=== PATIENT | male | born 1955 ===

== ENCOUNTER 2018-01-23 15:49 | Observation (INO) | payer MEDICAID ==
[2018-01-23 18:05] LABS: BASO # 0.1 K/uL (0.0-0.2); EOS # 0.2 K/uL (0.0-0.7); HEMOGLOBIN 17.7 g/dL (12.0-18.0)
[2018-01-23 18:10] LABS: URINE BACTERIA RARE (<OCC); URINE BILIRUBIN NEGATIVE (NEGATIVE); URINE BLOOD NEGATIVE (NEGATIVE); URINE CLARITY Clear (Clear); URINE GLUCOSE (UA) NORMAL (Normal); URINE LEUKOCYTE ESTERASE NEG Leu/uL (Negative); URINE PROTEIN NEGATIVE (NEGATIVE)
[2018-01-23 18:12] LABS: URINE COLOR YELLOW (YELLOW)
[2018-01-23 18:16] LABS: INR 1.1; PROTHROMBIN TIME 12.2 SECONDS (9.7-12.2)
[2018-01-23 18:20] LABS: ALB/GLOB RATIO 1.3 (1.0-2.1); ALBUMIN 4.3 g/dL (3.5-5.0); ALT/SGPT 49 U/L (21-72); AST/SGOT 23 U/L (17-59); BLOOD UREA NITROGEN 24 mg/dL (9-20); CALCIUM 9.7 mg/dl (8.6-10.4); GFR AFRICAN-AMERICAN > 60; GFR NON-AFRICAN AMERICAN 51; LIPASE 155 U/L (23-300)
[2018-01-23 18:26] LABS: MEAN CELL VOLUME 89.5 fL (80.0-94.0); MEAN CORPUSCULAR HEMOGLOBIN 31.2 pg (27.0-31.0); MEAN CORPUSCULAR HGB CONC 34.8 g/dL (33.0-37.0); MEAN PLATELET VOLUME 8.3 fL (7.2-11.7); RBC 5.69 Mil/uL (4.40-5.90); RED CELL DISTRIBUTION WIDTH 13.4 % (11.5-14.5); WHITE BLOOD COUNT 10.2 K/uL (4.8-10.8)
[2018-01-23 18:31] LABS: B-TYPE NATRIURETIC PEPTIDE 34.3 pg/mL (0-900)
[2018-01-23 18:32] LABS: BARBITURATES, UR NEGATIVE (NEGATIVE); BENZODIAZEPINES, UR NEGATIVE (NEGATIVE); OPIATES, UR NEGATIVE (NEGATIVE); PHENCYCLIDINE, UR NEGATIVE (NEGATIVE)
[2018-01-23 18:39] LABS: LYMPH % 20.8 % (20.0-40.0); MONO % 8.5 % (0.0-10.0); NEUT % 68.1 % (50.0-75.0)
[2018-01-23 18:40] LABS: BASO % 0.6 % (0.0-2.0); LYMPH # 2.1 K/uL (1.0-4.3); MONO # 0.9 K/uL (0.0-0.8); NEUT # 6.9 K/uL (1.8-7.0); NRBC % 0.3 % (0.0-2.0)
[2018-01-23] MEDS ORDERED: Potassium Chloride 20 mEq ER Tab PO STA (19:23)
--- NOTE | 2018-01-23 19:33 | C.PDOC ---
Time Seen by Provider: 01/23/18 17:26 Chief Complaint (Nursing): Chest Pain History Per: Patient Onset/Duration Of Symptoms: Days, Intermittent Episodes Current Symptoms Are (Timing): Still Present Severity: Moderate Quality: "Pain" Associated Symptoms: Nausea, Dyspnea Exacerbating Factors: Exertion Additional History Per: Prior Records Past Medical History Reviewed: Historical Data, Nursing Documentation, Vital Signs Vital Signs: Last Vital Signs Temp 98.0 F 01/23/18 16:28 Pulse 105 H 01/23/18 19:00 Resp 19 01/23/18 19:00 BP 124/87 01/23/18 19:00 Pulse Ox 100 01/23/18 19:35 - Medical History PMH: CAD, HTN Surgical History: Coronary Stent Family History: States: Unknown Family Hx - Social History Hx Tobacco Use: Yes Hx Alcohol Use: No Hx Substance Use: No - Immunization History Hx Tetanus Toxoid Vaccination: No Hx Influenza Vaccination: Yes Hx Pneumococcal Vaccination: Yes Review Of Systems Except As Marked, All Systems Reviewed And Found Negative. Constitutional: Positive for: Weakness, Malaise. Negative for: Fever Cardiovascular: Positive for: Chest Pain Respiratory: Positive for: SOB with Excertion Gastrointestinal: Positive for: Abdominal Pain Musculoskeletal: Negative for: Neck Pain Neurological: Negative for: Weakness, Numbness Physical Exam - Physical Exam Appears: No Acute Distress, Chronically Ill Skin: Normal Color, Warm, Dry Head: Atraumatic, Normacephalic Eye(s): bilateral: PERRL, EOMI Neck: Normal ROM, Supple Cardiovascular: Rhythm Regular Respiratory: Normal Breath Sounds, No Accessory Muscle Use Gastrointestinal/Abdominal: Soft Extremity: Normal ROM, No Pedal Edema Neurological/Psych: Oriented x3, Normal Motor, Normal Sensation ED Course And Treatment - Laboratory Results Result Diagrams: 01/23/18 18:02 01/23/18 18:02 Interpretation Of Abnormal: Mild hypokalemia ECG: Interpreted By Me, Viewed By Me ECG Rhythm: Sinus Rhythm, Nonspecific Changes ECG Interpretation: Abnormal Interpretation Of ECG: Q waves in leads III and aVF Rate From EC O2 Sat by Pulse Oximetry: 100 Pulse Ox Interpretation: Normal - Radiology CXR: Interpreted by Me, Viewed By Me CXR Interpretation: Yes: No Acute Disease Progress - Interventions Interventions:: Observation, Oxygen - Medications Administered Oral: Aspirin, Other (KCl) - Data Reviewed Data Reviewed: Lab, Diagnostic imaging, EKG, Old records - Patient Status Patient status: Partially improved - Continuity of Care Discussed patient case with:: Patient, Family-HIPPA compliant, ED Nurse, Covering for PMD Disposition Discussed With : London Sommer Comment: He accepted pt on hospitalist service. Doctor Will See Patient In The: Hospital Counseled Patient/Family Regarding: Studies Performed, Diagnosis, Smoking Cessation - Disposition Disposition: HOSPITALIZED Disposition Time: 20:03 Condition: FAIR - Clinical Impression Clinical Impression: Chest pain, Coronary artery disease
[2018-01-23] MEDS ORDERED: Potassium Chloride 20 mEq ER Tab PO ONE (20:15)
--- NOTE | 2018-01-23 21:58 | CP.PCM.HP ---
<Joe Hurtado - Last Filed: 01/24/18 06:05> History of Present Illness - History of Present Illness History of Present Illness: CC: Abdominal Pain HPI: In [employer] ( [place], [id number])- Poor historian Patient is a 62 year old male CAD (with stent placement), PVD and HTN, who presents to the ED with complaint of left-sided abdominal pain that radiates upward to this left side/chest and neck with associated symptoms of daily nausea and vomiting . Patient' symptom has been going on for 3- 4 weeks, however , he did not seek medical attention because the pain was not continuos or constant. However, over the past 1 week, his symptoms have been continuous, which he describes as an 8/10 radiating pressure. As per ED nurses, patient was sent to the ED by his PMD due to abnormal findings on a CT abdomen without contrast 2 days ago; patient does not have the results. Patient admits to chills , nausea, vomiting and headache, but denies fever, chest pain, SOB, palpitations , hematochezia, urinary symptoms and recent sick contact or travels. PMD: Dr. Gamble Floorworker: Dr. White PMHx: CAD (with stent placement), PVD and HTN PSHx: Cardiac stent placement and popliteal stent FHx: Unknown Medications: Does not recall; as per emr (Norvasc 10mg PO QD, Plavix 75mg PO QD , ASA 81mg PO QD Allergies: NKDA Social Hx: Lives alone, unemployed. Admits > 50 yrs of tobacco use ( 2PPD initially, currently, 3-4 cigarettes per day), Denies ETOH and illicit drug use Present on Admission - Present on Admission Any Indicators Present on Admission: No Review of Systems - Constitutional Constitutional: Chills, Headache. absent: Fever, Frequent Falls, Weakness - EENT Eyes: absent: Blurred Vision, Change in Vision Ears: absent: Dizziness - Cardiovascular Cardiovascular: Radiating Pain. absent: Chest Pain, Chest Pain at Rest, Dyspnea , Lightheadedness, Palpitations - Respiratory Respiratory: absent: Cough, Dyspnea - Gastrointestinal Gastrointestinal: Abdominal Pain, Nausea, Vomiting. absent: Belching, Bloating , Change in Bowel Habits, Cramping, Hematemesis, Hematochezia, Odynophagia - Genitourinary Genitourinary: absent: Dysuria, Flank Pain, Hematuria, Pyuria - Musculoskeletal Musculoskeletal: absent: Numbness, Tingling - Neurological Neurological: Headaches. absent: Dizziness, Syncope, Tingling, Weakness - Psychiatric Psychiatric: absent: Change in Appetite - Endocrine Endocrine: absent: Fatigue, Palpitations Past Patient History - Past Social History Smoking Status: Light Smoker < 10 Cigarettes Daily - CARDIAC Hx Hypertension: Yes - PSYCHIATRIC Hx Substance Use: No - SURGICAL HISTORY Hx Coronary Stent: Yes Meds Allergies/Adverse Reactions: Allergies Allergy/AdvReac Type Severity Reaction Status Date / Time No Known Allergies Allergy Verified 01/23/18 16:31 Physical Exam - Constitutional Appears: No Acute Distress - Head Exam Head Exam: ATRAUMATIC, NORMAL INSPECTION - Eye Exam Eye Exam: EOMI. absent: Scleral icterus Pupil Exam: NORMAL ACCOMODATION - ENT Exam ENT Exam: Mucous Membranes Moist - Neck Exam Neck exam: Negative for: Lymphadenopathy - Respiratory Exam Respiratory Exam: Clear to Auscultation Bilateral, NORMAL BREATHING PATTERN. absent: Rhonchi, Wheezes, Respiratory Distress - Cardiovascular Exam Cardiovascular Exam: REGULAR RHYTHM, +S1, +S2. absent: Bradycardia, Tachycardia , Diastolic murmur, Systolic Murmur - GI/Abdominal Exam GI & Abdominal Exam: Soft, Tenderness. absent: Diminished Bowel Sounds, Distended, Firm, Guarding Additional comments: Left lower quadrant tenderness - Extremities Exam Extremities exam: Positive for: normal inspection. Negative for: calf tenderness, pedal edema - Back Exam Back exam: absent: CVA tenderness (L), CVA tenderness (R) - Neurological Exam Neurological exam: Alert, CN II-XII Intact, Oriented x3 - Psychiatric Exam Psychiatric exam: Normal Affect - Skin Skin Exam: Normal Color Results - Vital Signs Recent Vital Signs: Last Vital Signs Temp 98.0 F 01/23/18 16:28 Pulse 103 H 01/23/18 20:18 Resp 21 01/23/18 20:18 BP 112/81 01/23/18 20:18 Pulse Ox 98 01/23/18 20:18 - Labs Result Diagrams: 01/23/18 18:02 01/23/18 18:02 Labs: Laboratory Results - last 24 hr 01/23/18 01/23/18 01/23/18 17:58 17:58 18:02 WBC 10.2 RBC 5.69 Hgb 17.7 Hct 50.9 MCV 89.5 MCH 31.2 H MCHC 34.8 RDW 13.4 Plt Count 340 MPV 8.3 Neut % (Auto) 68.1 Lymph % (Auto) 20.8 [place] % (Auto) 8.5 Eos % (Auto) 2.0 Baso % (Auto) 0.6 Neut # (Auto) 6.9 Lymph # (Auto) 2.1 [place] # (Auto) 0.9 H Eos # (Auto) 0.2 Baso # (Auto) 0.1 PT INR APTT Sodium Potassium Chloride Carbon Dioxide Anion Gap BUN Creatinine Est GFR ( Amer) Est GFR (Non-Af Amer) Random Glucose Calcium Total Bilirubin AST ALT Alkaline Phosphatase Troponin I NT-Pro-B Natriuret Pep Total Protein Albumin Globulin Albumin/Globulin Ratio Lipase Urine Color Yellow Urine Clarity Clear Urine pH 5.0 Ur Specific [place] 1.026 Urine Protein Negative Urine Glucose (UA) Normal Urine Ketones Negative Urine Blood Negative Urine Nitrate Negative Urine Bilirubin Negative Urine Urobilinogen 2.0 Ur Leukocyte Esterase Neg Urine WBC (Auto) 1 Urine RBC (Auto) 1 Urine Bacteria Rare Urine Opiates Screen Negative Urine Methadone Screen Negative Ur Barbiturates Screen Negative Ur Phencyclidine Scrn Negative Ur Amphetamines Screen Negative U Benzodiazepines Scrn Negative U Oth Cocaine Metabols Negative U Cannabinoids Screen Negative 01/23/18 01/23/18 18:02 18:02 WBC RBC Hgb Hct MCV MCH MCHC RDW Plt Count MPV Neut % (Auto) Lymph % (Auto) [place] % (Auto) Eos % (Auto) Baso % (Auto) Neut # (Auto) Lymph # (Auto) [place] # (Auto) Eos # (Auto) Baso # (Auto) PT 12.2 INR 1.1 APTT 34 Sodium 139 Potassium 3.1 L Chloride 95 L Carbon Dioxide 28 Anion Gap 19 BUN 24 H Creatinine 1.4 Est GFR ( Amer) > 60 Est GFR (Non-Af Amer) 51 Random Glucose 174 H Calcium 9.7 Total Bilirubin 0.6 AST 23 ALT 49 Alkaline Phosphatase 103 Troponin I < 0.0120 NT-Pro-B Natriuret Pep 34.3 Total Protein 7.5 Albumin 4.3 Globulin 3.2 Albumin/Globulin Ratio 1.3 Lipase 155 Urine Color Urine Clarity Urine pH Ur Specific [place] Urine Protein Urine Glucose (UA) Urine Ketones Urine Blood Urine Nitrate Urine Bilirubin Urine Urobilinogen Ur Leukocyte Esterase Urine WBC (Auto) Urine RBC (Auto) Urine Bacteria Urine Opiates Screen Urine Methadone Screen Ur Barbiturates Screen Ur Phencyclidine Scrn Ur Amphetamines Screen U Benzodiazepines Scrn U Oth Cocaine Metabols U Cannabinoids Screen Assessment & Plan (1) Chest pain Assessment and Plan: Consultation: * Floorworker, Dr. Redmond, ----> Help appreciated - Management as per recommendation Labs: * Troponin negative X1, f/u Troponin X2 * EKG: NSR, non-specific changes, Q-waves in inferior leads, old infarct * F/u Lipid panel, HgbA1C, TSH and Free T4 Medication: * ASA 81mg PO QD Status: Acute (2) Left sided abdominal pain Assessment and Plan: F/u CT Abdomen Status: Acute (3) History of coronary artery disease Assessment and Plan: Continue home medication: * ASA 81mg PO QD * Plavix 75mg PO QD Status: Acute (4) History of hypertension Assessment and Plan: Continue home medication: * Norvasc 10mg PO QD Status: Acute (5) Prophylactic measure Assessment and Plan: GI: Not indicated DVT: SCDs All plans and management discussed with Dr. Sommer Status: Acute <London Sommer - Last Filed: 01/24/18 06:09> Results - Vital Signs Recent Vital Signs: Last Vital Signs Temp 97.5 F L 01/24/18 04:05 Pulse 77 01/24/18 04:05 Resp 20 01/24/18 04:05 BP 119/77 01/24/18 04:05 Pulse Ox 95 01/24/18 04:05 - Labs Result Diagrams: 01/23/18 18:02 01/23/18 18:02 Labs: Laboratory Results - last 24 hr 01/23/18 01/23/18 01/23/18 17:58 17:58 18:02 WBC 10.2 RBC 5.69 Hgb 17.7 Hct 50.9 MCV 89.5 MCH 31.2 H MCHC 34.8 RDW 13.4 Plt Count 340 MPV 8.3 Neut % (Auto) 68.1 Lymph % (Auto) 20.8 [place] % (Auto) 8.5 Eos % (Auto) 2.0 Baso % (Auto) 0.6 Neut # (Auto) 6.9 Lymph # (Auto) 2.1 [place] # (Auto) 0.9 H Eos # (Auto) 0.2 Baso # (Auto) 0.1 PT INR APTT Sodium Potassium Chloride Carbon Dioxide Anion Gap BUN Creatinine Est GFR ( Amer) Est GFR (Non-Af Amer) Random Glucose Calcium Total Bilirubin AST ALT Alkaline Phosphatase Total Creatine Kinase CK-MB (Mass) Troponin I NT-Pro-B Natriuret Pep Total Protein Albumin Globulin Albumin/Globulin Ratio Lipase Urine Color Yellow Urine Clarity Clear Urine pH 5.0 Ur Specific [place] 1.026 Urine Protein Negative Urine Glucose (UA) Normal Urine Ketones Negative Urine Blood Negative Urine Nitrate Negative Urine Bilirubin Negative Urine Urobilinogen 2.0 Ur Leukocyte Esterase Neg Urine WBC (Auto) 1 Urine RBC (Auto) 1 Urine Bacteria Rare Urine Opiates Screen Negative Urine Methadone Screen Negative Ur Barbiturates Screen Negative Ur Phencyclidine Scrn Negative Ur Amphetamines Screen Negative U Benzodiazepines Scrn Negative U Oth Cocaine Metabols Negative U Cannabinoids Screen Negative 01/23/18 01/23/18 01/24/18 18:02 18:02 00:21 WBC RBC Hgb Hct MCV MCH MCHC RDW Plt Count MPV Neut % (Auto) Lymph % (Auto) [place] % (Auto) Eos % (Auto) Baso % (Auto) Neut # (Auto) Lymph # (Auto) [place] # (Auto) Eos # (Auto) Baso # (Auto) PT 12.2 INR 1.1 APTT 34 Sodium 139 Potassium 3.1 L Chloride 95 L Carbon Dioxide 28 Anion Gap 19 BUN 24 H Creatinine 1.4 Est GFR ( Amer) > 60 Est GFR (Non-Af Amer) 51 Random Glucose 174 H Calcium 9.7 Total Bilirubin 0.6 AST 23 ALT 49 Alkaline Phosphatase 103 Total Creatine Kinase 52 L CK-MB (Mass) < 0.22 Troponin I < 0.0120 < 0.0120 NT-Pro-B Natriuret Pep 34.3 Total Protein 7.5 Albumin 4.3 Globulin 3.2 Albumin/Globulin Ratio 1.3 Lipase 155 Urine Color Urine Clarity Urine pH Ur Specific [place] Urine Protein Urine Glucose (UA) Urine Ketones Urine Blood Urine Nitrate Urine Bilirubin Urine Urobilinogen Ur Leukocyte Esterase Urine WBC (Auto) Urine RBC (Auto) Urine Bacteria Urine Opiates Screen Urine Methadone Screen Ur Barbiturates Screen Ur Phencyclidine Scrn Ur Amphetamines Screen U Benzodiazepines Scrn U Oth Cocaine Metabols U Cannabinoids Screen Assessment & Plan - Date & Time Date: 01/24/18 (I have seen and examined the patient. I agree with the findings and plan of care as documented by Dr. Hurtado. Patient with chest pain. Also with history of CAD. Consult to cardio. Jeremy3 with EKG. Aspirin and Statin. Continue home meds. Follow up CT abd/pelvis results for abdominal pain. Monitor for acute changes.) Time: 06:08 Attending/Attestation - Attestation I have personally seen and examined this patient.: Yes I have fully participated in the care of the patient.: Yes I have reviewed all pertinent clinical information: Yes
[2018-01-23 22:51] VITALS: RESP 20
[2018-01-24 00:59] LABS: CK-MB < 0.22 ng/mL (0.0-3.38)
[2018-01-24 08:19] LABS: BASO # 0.1 K/uL (0.0-0.2); BASO % 0.8 % (0.0-2.0); EOS # 0.2 K/uL (0.0-0.7); EOS % 3.3 % (0.0-4.0); HEMOGLOBIN 16.8 g/dL (12.0-18.0); LYMPH # 1.8 K/uL (1.0-4.3); MEAN CORPUSCULAR HEMOGLOBIN 31.5 pg (27.0-31.0); MEAN CORPUSCULAR HGB CONC 35.4 g/dL (33.0-37.0); MEAN PLATELET VOLUME 8.4 fL (7.2-11.7); MONO # 0.7 K/uL (0.0-0.8); MONO % 8.7 % (0.0-10.0); NEUT # 4.7 K/uL (1.8-7.0); NEUT % 63.2 % (50.0-75.0); NRBC % 0.3 % (0.0-2.0); RBC 5.32 Mil/uL (4.40-5.90); RED CELL DISTRIBUTION WIDTH 13.1 % (11.5-14.5); WHITE BLOOD COUNT 7.5 K/uL (4.8-10.8)
[2018-01-24 08:35] LABS: ALB/GLOB RATIO 1.5 (1.0-2.1); ALBUMIN 4.2 g/dL (3.5-5.0); ALT/SGPT 49 U/L (21-72); AST/SGOT 28 U/L (17-59); BLOOD UREA NITROGEN 22 mg/dL (9-20); CALCIUM 9.1 mg/dl (8.6-10.4); GFR AFRICAN-AMERICAN > 60; GFR NON-AFRICAN AMERICAN > 60; HDL CHOLESTEROL 23 mg/dL (30-70)
[2018-01-24 08:41] LABS: LDL CHOLESTEROL 120 mg/dL (0-129)
[2018-01-24 08:43] LABS: CK-MB 0.3 ng/mL (0.0-3.38); TROPONIN I 0.014 ng/mL (0.00-0.120)
[2018-01-24] MEDS: Enoxaparin 40 mg Syringe SC SCH (09:36)
[2018-01-24] MEDS ORDERED: Potassium Chloride 20 mEq ER Tab PO STA (09:41)
[2018-01-24] MEDS ORDERED: Pneumococcal 23-Valent Vaccine IM ONE (10:00)
--- NOTE | 2018-01-24 10:38 | CT ---
Date of service: 01/23/2018 PROCEDURE: CT Chest, Abdomen and Pelvis without intravenous contrast HISTORY: Abdominal Pain COMPARISON: None available. TECHNIQUE: Axial and reformatted coronal and sagittal CT images of the chest abdomen and pelvis were obtained without IV or oral contrast administration. Radiation dose: Total exam DLP = 1587.68 mGy-cm. This CT exam was performed using one or more of the following dose reduction techniques: Automated exposure control, adjustment of the mA and/or kV according to patient size, and/or use of iterative reconstruction technique. FINDINGS: CT CHEST WITHOUT CONTRAST: LUNGS: Mild emphysematous changes are noted predominant in the upper lobes. No evidence of pneumonia or mass lesion in the lungs. There is 5 millimeter noncalcified nodule noted at the right lower lobe image 76 series 4. MEDIASTINUM: Diffuse increased fat in the mediastinum is noted. . Normal caliber aorta and pulmonary arterial trunk. Normal size heart. There is diffuse coronary artery calcification noted. Focal pericardial thickening seen in the anterior portion of the heart. Mild diffuse esophageal mucosal thickening LYMPH NODES: Unremarkable. PLEURA: Unremarkable. No pneumothorax. No pleural fluid. BONES: Unremarkable. OTHER FINDINGS: None. CT ABDOMEN AND PELVIS: LIVER: Heterogeneous mild diffuse low-attenuation of the liver suggestive of hepatic steatosis. GALLBLADDER AND BILE DUCTS: Unremarkable. PANCREAS: Unremarkable. No gross lesion or ductal dilatation. SPLEEN: Unremarkable. ADRENALS: Unremarkable. No mass. KIDNEYS AND URETERS: Unremarkable. No hydronephrosis. No solid mass. VASCULATURE: Diffuse atherosclerotic calcification noted. No aortic aneurysm. BOWEL: Unremarkable. No obstruction. No gross mural thickening. The stomach is not distended therefore cannot be evaluated. APPENDIX: Normal appendix. PERITONEUM: Unremarkable. No free fluid. No free air. LYMPH NODES: Unremarkable. No enlarged lymph nodes. BLADDER: Unremarkable. REPRODUCTIVE: Unremarkable. BONES: No acute fracture. OTHER FINDINGS: None. IMPRESSION: No evidence of acute pathology in the chest abdomen and pelvis. Mild emphysema. Five millimeter noncalcified nodule at the right lung lower lobe. Twelve months follow-up reassessment by CT is suggested. No evidence of cholecystitis pancreatitis or appendicitis. Moderate atherosclerotic disease. The stomach is not distended therefore cannot be evaluated. Preliminary report was submitted by [facility].
--- NOTE | 2018-01-24 11:41 | RAD ---
HISTORY: SOB COMPARISON: CT chest, abdomen, and pelvis performed same day TECHNIQUE: Chest one view . FINDINGS: LUNGS: No focal consolidation is seen. PLEURA: No pleural effusion is identified. CARDIOVASCULAR: Heart size is within normal limits. OSSEOUS STRUCTURES: No acute fracture identified VISUALIZED UPPER ABDOMEN: Unremarkable. OTHER FINDINGS: None. IMPRESSION: No acute cardiopulmonary process seen.
--- NOTE | 2018-01-24 14:30 | CARD ---
APPROVED REPORT Date of service: 01/23/2018 EKG Measurement Heart [id number] <Conclusion> Sinus rhythm with premature atrial complexes Minimal voltage criteria for LVH, may be normal variant Possible Inferior infarct, age undetermined Abnormal ECG
--- NOTE | 2018-01-24 14:30 | CARD ---
APPROVED REPORT Date of service: 01/23/2018 EKG Measurement Heart [id number] <Conclusion> Sinus rhythm with marked sinus arrhythmia with 1st degree AV block Inferior infarct, age undetermined Abnormal ECG
--- NOTE | 2018-01-24 17:01 | CP.PCM.PN ---
<Lady Quinn - Last Filed: 01/24/18 17:30> Subjective - Date & Time of Evaluation Date of Evaluation: 01/24/18 Time of Evaluation: 09:50 - Subjective Subjective: 62 yo M w/ PMHx of CAD(stent), PVD, HTN, HLD, PUD, admitted w/ LUQ abd pain 2/2 recurrent PUD. Pt seen and examined at bedside, no acute events overnight. Pt states he has continued abdominal pain, worse post prandial. Denies chest pain, SOB, nausea, vomiting, diarrhea. Objective - Vital Signs/Intake and Output Vital Signs (last 24 hours): Temp Pulse Resp BP Pulse Ox 98.4 F 91 H 20 115/76 95 01/24/18 07:00 01/24/18 08:00 01/24/18 07:00 01/24/18 07:00 01/24/18 12:00 - Medications Medications: Current Medications Amlodipine Besylate (Norvasc) 10 mg PO DAILY [facility] Last Admin: 01/24/18 09:36 Dose: 10 mg Aspirin (Aspirin Chewable) 81 mg PO DAILY [facility] Last Admin: 01/24/18 09:36 Dose: 81 mg Clopidogrel Bisulfate (Plavix) 75 mg PO DAILY [facility] Last Admin: 01/24/18 09:36 Dose: 75 mg Enoxaparin Sodium (Lovenox) 40 mg SC DAILY [facility] Last Admin: 01/24/18 09:36 Dose: 40 mg Famotidine (Pepcid) 20 mg PO BID [facility] Last Admin: 01/24/18 12:07 Dose: 20 mg - Labs Labs: 01/24/18 08:07 01/24/18 08:07 PT 12.2 SECONDS (9.7-12.2) 01/23/18 18:02 INR 1.1 01/23/18 18:02 APTT 34 SECONDS (21-34) 01/23/18 18:02 - Constitutional Appears: Non-toxic, No Acute Distress - Head Exam Head Exam: ATRAUMATIC, NORMAL INSPECTION, NORMOCEPHALIC - Eye Exam Eye Exam: EOMI - ENT Exam ENT Exam: Mucous Membranes Moist - Respiratory Exam Respiratory Exam: Decreased Breath Sounds, NORMAL BREATHING PATTERN - Cardiovascular Exam Cardiovascular Exam: REGULAR RHYTHM - GI/Abdominal Exam GI & Abdominal Exam: Soft, Normal Bowel Sounds - Extremities Exam Extremities Exam: Normal Capillary Refill. absent: Pedal Edema - Neurological Exam Neurological Exam: Alert, Oriented x3 Assessment and Plan - Assessment and Plan (Free Text) Assessment: 62 yo M admitted for PUD exacerbation 1. r/o ACS -stent 3 mo ago w/ Dr. Redmond [facility] [place] -plavix 75mg s/p stent -troponins (-) x3 -ASA 81mg -cardio consult Dr. Redmond - 2. PUD -hx of multiple H. Pylori infections, last 4 mo ago -EGD w/ biopsy recommended -per Dr. Redmond EGD w/ bx not advised s/p stent, pt should follow w/ GI outpatient 3. HTN -amlodipine 10mg -HH diet 4. HLD -lipid panel shows elevated triglycerides and decreased HDL -statin therapy indicated but pt non-compliant 5. Hypokalemia -K 3.0 -40 mEq K-dur -replete as needed <Ron Rothman - Last Filed: 01/24/18 21:12> Objective - Vital Signs/Intake and Output Vital Signs (last 24 hours): Temp Pulse Resp BP Pulse Ox 98.4 F 82 20 96/58 L 96 01/24/18 16:00 01/24/18 16:00 01/24/18 16:00 01/24/18 16:00 01/24/18 16:00 - Medications Medications: Current Medications Amlodipine Besylate (Norvasc) 10 mg PO DAILY [facility] Last Admin: 01/24/18 09:36 Dose: 10 mg Aspirin (Aspirin Chewable) 81 mg PO DAILY [facility] Last Admin: 01/24/18 09:36 Dose: 81 mg Clopidogrel Bisulfate (Plavix) 75 mg PO DAILY [facility] Last Admin: 01/24/18 09:36 Dose: 75 mg Enoxaparin Sodium (Lovenox) 40 mg SC DAILY [facility] Last Admin: 01/24/18 09:36 Dose: 40 mg Famotidine (Pepcid) 20 mg PO BID [facility] Last Admin: 01/24/18 17:56 Dose: 20 mg - Labs Labs: 01/24/18 08:07 01/24/18 08:07 PT 12.2 SECONDS (9.7-12.2) 01/23/18 18:02 INR 1.1 01/23/18 18:02 APTT 34 SECONDS (21-34) 01/23/18 18:02 Attending/Attestation - Attestation I have personally seen and examined this patient.: Yes I have fully participated in the care of the patient.: Yes I have reviewed all pertinent clinical information, including history, physical exam and plan: Yes Notes (Text): Patient was admitted for rule out Acute CAD. Recent cardiac stent by Dr tapia on asprin and plavix Patient denies chest pain. C/O Left hypochondria/epigastric pain On examination has mild epigastric tenderness.H/O PUD and treated for H pylori D/w Dr Tapia. He will see this patient Possible discharge in the morning d/w resident I agree with the documentation of the assessment and the plan
--- NOTE | 2018-01-24 20:49 | CP.PCM.CON ---
History of Present Illness - History of Present Illness History of Present Illness: I was asked to evaluate patient by medical team Patient is a 62 year old male with PMH HTN, CAD s/p PCI RCA, PAD with endovascular intervention of the left lower extremity who presents with epigastric pain. His symptoms occur in the lower abdomen. He has nausea at times, but no vomiting. Patient denies chest pain or claudication after intervention. Review of Systems - Constitutional Constitutional: absent: As Per HPI, Anorexia, Chills, Daytime Sleepiness, Excessive Sweating, Fatigue, Fever, Frequent Falls, Headache, Increased Appetite , Lethargy, Malaise, Night Sweats, Snoring, Sleep Apnea, Weight Gain, Weight Loss, Weakness, Other - EENT Eyes: absent: As Per HPI, Blind Spots, Blurred Vision, Change in Vision, Decreased Night Vision, Diplopia, Discharge, Dry Eye, Exophthalmos, Floaters, Irritation, Itchy Eyes, Loss of Peripheral Vision, Pain, Photophobia, Requires Corrective Lenses, Sees Flashes, Spots in Vision, Tunnel Vision, Other Visual Disturbances, Loss of Vision, Other Ears: absent: As Per HPI, Decreased Hearing, Ear Discharge, Ear Pain, Tinnitus, Abnormal Hearing, Disequilibrium, Dizziness, Other Nose/Mouth/Throat: absent: As Per HPI, Epistaxis, Nasal Congestion, Nasal Discharge, Nasal Obstruction, Nasal Trauma, Nose Pain, Post Nasal Drip, Sinus Pain, Sinus Pressure, Bleeding Gums, Change in Voice, Dental Pain, Dry Mouth, Dysphagia, Halitosis, Hoarsness, Lip Swelling, Mouth Lesions, Mouth Pain, Odynophagia, Sore Throat, Throat Swelling, Tongue Swelling, Facial Pain, Neck Pain, Neck Mass, Other - Cardiovascular Cardiovascular: absent: As Per HPI, Acrocyanosis, Chest Pain, Chest Pain at Rest , Chest Pain with Activity, Claudication, Diaphoresis, Dyspnea, Dyspnea on Exertion, Edema, Irregular Heart Rhythm, Pain Radiating to Arm/Neck/Jaw, Leg Edema, Leg Ulcers, Lightheadedness, Orthopnea, Palpitations, Paroxysmal Nocturnal Dyspnea, Pedal Edema, Radiating Pain, Rapid Heart Rate, Slow Heart Rate, Syncope, Other - Respiratory Respiratory: absent: As Per HPI, Cough, Dyspnea, Hemoptysis, Dyspnea on Exertion , Wheezing, Snoring, Stridor, Pain on Inspiration, Chest Congestion, Excessive Mucous Production, Change in Mucous Color, Pain with Coughing, Other - Gastrointestinal Gastrointestinal: Abdominal Pain - Genitourinary Genitourinary: absent: As Per HPI, Change in Urinary Stream, Difficulty Urinating, Dysuria, Flank Pain, Hematuria, Pyuria, Nocturia, Urinary Incontinence, Urinary Frequency, Urinary Hesitance, Urinary Urgency, Voiding Freq/Small Amts, Freq UTI, Hx Renal/Bladder Calculi, Hx /Renal Surgery, Bladder Distension, Other - Musculoskeletal Musculoskeletal: absent: As Per HPI, Abnormal Gait, Arthralgias, Atrophy, Back Pain, Deformity, Joint Swelling, Limited Range of Motion, Loss of Height, Muscle Cramps, Muscle Weakness, Myalgias, Neck Pain, Numbness, Radiating Pain into Limb, Stiffness, Tingling, Other - Integumentary Integumentary: absent: As Per HPI, Acne, Alopecia, Bleeding Lesions, Change in Hair, Change in Nails, Change in Pigmentation, Changing Lesions, Dry Skin, Erythema, Furuncle, Hirsutism, Lesions, New Lesions, Non-Healing Lesions, Photosensitivity, Pruritus, Rash, Skin Pain, Skin Ulcer, Sores, Striae, Swelling , Unusual Bruising, Wounds, Jaundice, Other - Neurological Neurological: absent: As Per HPI, Abnormal Gait, Abnormal Hearing, Abnormal Movements, Abnormal Speech, Behavioral Changes, Burning Sensations, Confusion, Convulsions, Disequilibrium, Dizziness, Numbness, Focal Weakness, Frequent Falls , Headaches, Lack of Coordination, Loss of Vision, Memory Loss, Paresthesias, Radicular Pain, Restless Legs, Sensory Deficit, Syncope, Tingling, Tremor, Vertigo, Weakness, Other Visual Disturbances, Other - Psychiatric Psychiatric: absent: As Per HPI, Abnormal Sleep Pattern, Anhedonia, Anxiety, Auditory Hallucinations, Behavioral Changes, Change in Appetite, Change in Libido, Confusion, Depression, Difficulty Concentrating, Hallucinations, Homicidal Ideation, Hopelessness, Irritability, Memory Loss, Mood Swings, Panic Attacks, Paranoia, Suicidal Ideation, Visual Hallucinations, Tactile Hallucinations, Other - Endocrine Endocrine: absent: As Per HPI, Change in Body Appearance, Change in Libido, Cold Intolorance, Deepening of Voice, Excessive Sweating, Fatigue, Flushing, Heat Intolorance, Increase in Ring/Shoe/Hat Size, Palpitations, Polydipsia, Polyphagia, Polyuria, Other - Hematologic/Lymphatic Hematologic: absent: As Per HPI, Easy Bleeding, Easy Bruising, Lymphadenopathy, Other Past Patient History - Past Social History Smoking Status: Light Smoker < 10 Cigarettes Daily - CARDIAC Hx Hypertension: Yes - PSYCHIATRIC Hx Substance Use: No - SURGICAL HISTORY Hx Coronary Stent: Yes Meds Allergies/Adverse Reactions: Allergies Allergy/AdvReac Type Severity Reaction Status Date / Time No Known Allergies Allergy Verified 01/23/18 16:31 - Medications Medications: Current Medications Amlodipine Besylate (Norvasc) 10 mg PO DAILY [facility] Last Admin: 01/24/18 09:36 Dose: 10 mg Aspirin (Aspirin Chewable) 81 mg PO DAILY [facility] Last Admin: 01/24/18 09:36 Dose: 81 mg Clopidogrel Bisulfate (Plavix) 75 mg PO DAILY [facility] Last Admin: 01/24/18 09:36 Dose: 75 mg Enoxaparin Sodium (Lovenox) 40 mg SC DAILY [facility] Last Admin: 01/24/18 09:36 Dose: 40 mg Famotidine (Pepcid) 20 mg PO BID [facility] Last Admin: 01/24/18 17:56 Dose: 20 mg Physical Exam - Constitutional Appears: Non-toxic - Head Exam Head Exam: NORMAL INSPECTION - Eye Exam Eye Exam: Normal appearance - ENT Exam ENT Exam: Mucous Membranes Moist - Neck Exam Neck exam: Positive for: Full Rom - Respiratory Exam Respiratory Exam: NORMAL BREATHING PATTERN - Cardiovascular Exam Cardiovascular Exam: REGULAR RHYTHM - GI/Abdominal Exam GI & Abdominal Exam: Normal Bowel Sounds - Rectal Exam Rectal Exam: Deferred - Extremities Exam Extremities exam: Negative for: pedal edema - Back Exam Back exam: NORMAL INSPECTION - Neurological Exam Neurological exam: Alert, Oriented x3 - Psychiatric Exam Psychiatric exam: Normal Affect - Skin Skin Exam: Normal Color Results - Vital Signs Recent Vital Signs: Last Vital Signs Temp 98.4 F 01/24/18 16:00 Pulse 82 01/24/18 16:00 Resp 20 01/24/18 16:00 BP 96/58 L 01/24/18 16:00 Pulse Ox 96 01/24/18 16:00 - Labs Result Diagrams: 01/24/18 08:07 01/24/18 08:07 Labs: Laboratory Results - last 24 hr 01/24/18 01/24/18 01/24/18 00:21 06:33 08:07 WBC 7.5 RBC 5.32 Hgb 16.8 Hct 47.4 MCV 89.0 MCH 31.5 H MCHC 35.4 RDW 13.1 Plt Count 280 MPV 8.4 Neut % (Auto) 63.2 Lymph % (Auto) 24.0 [place] % (Auto) 8.7 Eos % (Auto) 3.3 Baso % (Auto) 0.8 Neut # (Auto) 4.7 Lymph # (Auto) 1.8 [place] # (Auto) 0.7 Eos # (Auto) 0.2 Baso # (Auto) 0.1 Sodium Potassium Chloride Carbon Dioxide Anion Gap BUN Creatinine Est GFR ( Amer) Est GFR (Non-Af Amer) POC Glucose (mg/dL) 124 H Random Glucose Hemoglobin A1c Calcium Total Bilirubin AST ALT Alkaline Phosphatase Total Creatine Kinase 52 L CK-MB (Mass) < 0.22 Troponin I < 0.0120 Total Protein Albumin Globulin Albumin/Globulin Ratio Triglycerides Cholesterol LDL Cholesterol Direct HDL Cholesterol Free T4 TSH 3rd Generation 01/24/18 01/24/18 01/24/18 08:07 08:07 08:07 WBC RBC Hgb Hct MCV MCH MCHC RDW Plt Count MPV Neut % (Auto) Lymph % (Auto) [place] % (Auto) Eos % (Auto) Baso % (Auto) Neut # (Auto) Lymph # (Auto) [place] # (Auto) Eos # (Auto) Baso # (Auto) Sodium 138 Potassium 3.0 L Chloride 97 L Carbon Dioxide 29 Anion Gap 16 BUN 22 H Creatinine 1.1 Est GFR ( Amer) > 60 Est GFR (Non-Af Amer) > 60 POC Glucose (mg/dL) Random Glucose 122 H Hemoglobin A1c 5.9 Calcium 9.1 Total Bilirubin 0.8 AST 28 ALT 49 Alkaline Phosphatase 96 Total Creatine Kinase CK-MB (Mass) Troponin I Total Protein 7.0 Albumin 4.2 Globulin 2.8 Albumin/Globulin Ratio 1.5 Triglycerides 253 H Cholesterol 183 LDL Cholesterol Direct 120 HDL Cholesterol 23 L Free T4 1.28 TSH 3rd Generation 1.22 01/24/18 01/24/18 01/24/18 08:07 11:58 16:44 WBC RBC Hgb Hct MCV MCH MCHC RDW Plt Count MPV Neut % (Auto) Lymph % (Auto) [place] % (Auto) Eos % (Auto) Baso % (Auto) Neut # (Auto) Lymph # (Auto) Cherry # (Auto) Eos # (Auto) Baso # (Auto) Sodium Potassium Chloride Carbon Dioxide Anion Gap BUN Creatinine Est GFR ( Amer) Est GFR (Non-Af Amer) POC Glucose (mg/dL) 147 H 139 H Random Glucose Hemoglobin A1c Calcium Total Bilirubin AST ALT Alkaline Phosphatase Total Creatine Kinase 67 CK-MB (Mass) 0.30 Troponin I 0.0140 Total Protein Albumin Globulin Albumin/Globulin Ratio Triglycerides Cholesterol LDL Cholesterol Direct HDL Cholesterol Free T4 TSH 3rd Generation - EKG Data EKG Interpreted by: Myself EKG shows normal: Sinus rhythm Assessment & Plan (1) Coronary artery disease Assessment and Plan: s/p PCI RCA. recommend ASA/Plavix. no current angina. Status: Acute (2) History of hypertension Assessment and Plan: blood pressure control Status: Acute
--- NOTE | 2018-01-25 07:15 | CP.PCM.PN ---
Subjective - Date & Time of Evaluation Date of Evaluation: 01/25/18 Time of Evaluation: 09:15 - Subjective Subjective: 2 yo M w/ PMHx of CAD(stent), PVD, HTN, HLD, PUD, admitted w/ LUQ abd pain 2/2 recurrent PUD. Pt seen and examined at bedside, no acute events overnight. Pt states he has continued abdominal pain, worse post prandial. Denies chest pain, SOB, nausea, vomiting, diarrhea. Objective - Vital Signs/Intake and Output Vital Signs (last 24 hours): Temp Pulse Resp BP Pulse Ox 98.4 F 71 20 114/71 96 01/25/18 04:40 01/25/18 04:40 01/25/18 04:40 01/25/18 04:40 01/25/18 04:40 - Medications Medications: Current Medications Amlodipine Besylate (Norvasc) 10 mg PO DAILY [facility] Last Admin: 01/24/18 09:36 Dose: 10 mg Aspirin (Aspirin Chewable) 81 mg PO DAILY [facility] Last Admin: 01/24/18 09:36 Dose: 81 mg Clopidogrel Bisulfate (Plavix) 75 mg PO DAILY [facility] Last Admin: 01/24/18 09:36 Dose: 75 mg Enoxaparin Sodium (Lovenox) 40 mg SC DAILY [facility] Last Admin: 01/24/18 09:36 Dose: 40 mg Famotidine (Pepcid) 20 mg PO BID [facility] Last Admin: 01/24/18 17:56 Dose: 20 mg - Labs Labs: 01/24/18 08:07 01/24/18 08:07 PT 12.2 SECONDS (9.7-12.2) 01/23/18 18:02 INR 1.1 01/23/18 18:02 APTT 34 SECONDS (21-34) 01/23/18 18:02 - Constitutional Appears: Well, No Acute Distress - Head Exam Head Exam: ATRAUMATIC, NORMAL INSPECTION, NORMOCEPHALIC - Eye Exam Eye Exam: EOMI - ENT Exam ENT Exam: Mucous Membranes Moist - Respiratory Exam Respiratory Exam: Decreased Breath Sounds, Clear to Ausculation Bilateral, NORMAL BREATHING PATTERN - Cardiovascular Exam Cardiovascular Exam: REGULAR RHYTHM. absent: Murmur - GI/Abdominal Exam GI & Abdominal Exam: Soft, Normal Bowel Sounds - Extremities Exam Extremities Exam: Normal Capillary Refill. absent: Calf Tenderness, Pedal Edema - Neurological Exam Neurological Exam: Alert, Oriented x3 - Skin Skin Exam: Normal Color Assessment and Plan - Assessment and Plan (Free Text) Assessment: 62 yo M admitted for PUD exacerbation 1. r/o ACS -stent 3 mo ago w/ Dr. Redmond [facility] [place] -plavix 75mg s/p stent -troponins (-) x3 -ASA 81mg -cardio consult Dr. Redmond 2. PUD -hx of multiple H. Pylori infections, last 4 mo ago -EGD w/ biopsy recommended -per Dr. Redmond EGD w/ bx not advised s/p stent, pt should follow w/ GI outpatient 3. HTN -amlodipine 10mg -HH diet 4. CAD -ASA 81mg -B-amrik indicated, will discuss low dose Coreg w/ Dr. Redmond 5. HLD -lipid panel shows elevated triglycerides and decreased HDL -statin therapy indicated but pt non-compliant, refuses to take 6. Hypokalemia -K 3.2 -40 mEq K-dur -replete as needed
[2018-01-25 08:27] LABS: BASO # 0.1 K/uL (0.0-0.2); BASO % 0.8 % (0.0-2.0); EOS # 0.2 K/uL (0.0-0.7); EOS % 3.4 % (0.0-4.0); LYMPH % 27.6 % (20.0-40.0); MEAN CELL VOLUME 88.8 fL (80.0-94.0); MEAN CORPUSCULAR HEMOGLOBIN 31.2 pg (27.0-31.0); MEAN CORPUSCULAR HGB CONC 35.1 g/dL (33.0-37.0); MEAN PLATELET VOLUME 8.5 fL (7.2-11.7); MONO # 0.7 K/uL (0.0-0.8); MONO % 10.1 % (0.0-10.0); NEUT # 4.2 K/uL (1.8-7.0); NEUT % 58.1 % (50.0-75.0); NRBC % 0.3 % (0.0-2.0); RBC 5.15 Mil/uL (4.40-5.90); RED CELL DISTRIBUTION WIDTH 13.5 % (11.5-14.5); WHITE BLOOD COUNT 7.2 K/uL (4.8-10.8)
[2018-01-25 08:46] VITALS: BP 131/82; PULSE 79; TEMP 98.3; O2SAT 95
[2018-01-25 08:46] LABS: ALB/GLOB RATIO 1.3 (1.0-2.1); ALBUMIN 3.9 g/dL (3.5-5.0); ALT/SGPT 42 U/L (21-72); AST/SGOT 26 U/L (17-59); BLOOD UREA NITROGEN 16 mg/dL (9-20); CALCIUM 9.1 mg/dl (8.6-10.4); GFR AFRICAN-AMERICAN > 60; GFR NON-AFRICAN AMERICAN > 60
[2018-01-25] MEDS: Enoxaparin 40 mg Syringe SC SCH (09:35)
[2018-01-25] MEDS ORDERED: Potassium Chloride 20 mEq ER Tab PO ONE (10:23)
--- NOTE | 2018-01-25 15:24 | CP.PCM.DIS ---
Provider - Provider Date of Admission: 01/23/18 20:04 Attending physician: Ron Rothman MD Primary care physician: Dr. Gamble Consults: Dr. Redmond-cardiology Time Spent in preparation of Discharge (in minutes): 35 Diagnosis - Discharge Diagnosis (1) PUD (peptic ulcer disease) Status: Acute (2) Chest pain Status: Acute (3) Coronary artery disease Status: Chronic (4) History of hypertension Status: Chronic (5) Hyperlipidemia Status: Chronic (6) Throat pain Status: Acute Hospital Course - Lab Results Lab Results: Most Recent Lab Values WBC 7.2 K/uL (4.8-10.8) 01/25/18 07:56 RBC 5.15 Mil/uL (4.40-5.90) 01/25/18 07:56 Hgb 16.0 g/dL (12.0-18.0) 01/25/18 07:56 Hct 45.7 % (35.0-51.0) 01/25/18 07:56 MCV 88.8 fL (80.0-94.0) 01/25/18 07:56 MCH 31.2 pg (27.0-31.0) H 01/25/18 07:56 MCHC 35.1 g/dL (33.0-37.0) 01/25/18 07:56 RDW 13.5 % (11.5-14.5) 01/25/18 07:56 Plt Count 279 K/uL (130-400) 01/25/18 07:56 MPV 8.5 fL (7.2-11.7) 01/25/18 07:56 Neut % (Auto) 58.1 % (50.0-75.0) 01/25/18 07:56 Lymph % (Auto) 27.6 % (20.0-40.0) 01/25/18 07:56 [place] % (Auto) 10.1 % (0.0-10.0) H 01/25/18 07:56 Eos % (Auto) 3.4 % (0.0-4.0) 01/25/18 07:56 Baso % (Auto) 0.8 % (0.0-2.0) 01/25/18 07:56 Neut # (Auto) 4.2 K/uL (1.8-7.0) 01/25/18 07:56 Lymph # (Auto) 2.0 K/uL (1.0-4.3) 01/25/18 07:56 [place] # (Auto) 0.7 K/uL (0.0-0.8) 01/25/18 07:56 Eos # (Auto) 0.2 K/uL (0.0-0.7) 01/25/18 07:56 Baso # (Auto) 0.1 K/uL (0.0-0.2) 01/25/18 07:56 PT 12.2 SECONDS (9.7-12.2) 01/23/18 18:02 INR 1.1 01/23/18 18:02 APTT 34 SECONDS (21-34) 01/23/18 18:02 Sodium 138 mmol/L (132-148) 01/25/18 07:56 Potassium 3.2 mmol/L (3.6-5.2) L 01/25/18 07:56 Chloride 100 mmol/L (98-107) 01/25/18 07:56 Carbon Dioxide 25 mmol/L (22-30) 01/25/18 07:56 Anion Gap 16 (10-20) 01/25/18 07:56 BUN 16 mg/dL (9-20) 01/25/18 07:56 Creatinine 1.0 mg/dL (0.8-1.5) 01/25/18 07:56 Est GFR ( Amer) > 60 01/25/18 07:56 Est GFR (Non-Af Amer) > 60 01/25/18 07:56 POC Glucose (mg/dL) 106 mg/dL (65-110) 01/25/18 06:52 Random Glucose 106 mg/dL (75-110) 01/25/18 07:56 Hemoglobin A1c 5.9 % (4.2-6.5) 01/24/18 08:07 Calcium 9.1 mg/dl (8.6-10.4) 01/25/18 07:56 Phosphorus 3.6 mg/dL (2.5-4.5) 01/25/18 07:56 Magnesium 1.9 mg/dL (1.6-2.3) 01/25/18 07:56 Total Bilirubin 0.6 mg/dL (0.2-1.3) 01/25/18 07:56 AST 26 U/L (17-59) 01/25/18 07:56 ALT 42 U/L (21-72) 01/25/18 07:56 Alkaline Phosphatase 94 U/L (38-126) 01/25/18 07:56 Total Creatine Kinase 67 U/L (55-170) 01/24/18 08:07 CK-MB (Mass) 0.30 ng/mL (0.0-3.38) 01/24/18 08:07 Troponin I 0.0140 ng/mL (0.00-0.120) 01/24/18 08:07 NT-Pro-B Natriuret Pep 34.3 pg/mL (0-900) 01/23/18 18:02 Total Protein 6.8 g/dL (6.3-8.3) 01/25/18 07:56 Albumin 3.9 g/dL (3.5-5.0) 01/25/18 07:56 Globulin 3.0 gm/dL (2.2-3.9) 01/25/18 07:56 Albumin/Globulin Ratio 1.3 (1.0-2.1) 01/25/18 07:56 Triglycerides 253 mg/dL (0-149) H 01/24/18 08:07 Cholesterol 183 mg/dL (0-199) 01/24/18 08:07 LDL Cholesterol Direct 120 mg/dL (0-129) 01/24/18 08:07 HDL Cholesterol 23 mg/dL (30-70) L 01/24/18 08:07 Lipase 155 U/L (23-300) 01/23/18 18:02 Free T4 1.28 ng/dL (0.78-2.19) 01/24/18 08:07 TSH 3rd Generation 1.22 mIU/L (0.46-4.68) 01/24/18 08:07 Urine Color Yellow (YELLOW) 01/23/18 17:58 Urine Clarity Clear (Clear) 01/23/18 17:58 Urine pH 5.0 (5.0-8.0) 01/23/18 17:58 Ur Specific [place] 1.026 (1.003-1.030) 01/23/18 17:58 Urine Protein Negative mg/dL (NEGATIVE) 01/23/18 17:58 Urine Glucose (UA) Normal mg/dL (Normal) 01/23/18 17:58 Urine Ketones Negative mg/dL (NEGATIVE) 01/23/18 17:58 Urine Blood Negative (NEGATIVE) 01/23/18 17:58 Urine Nitrate Negative (NEGATIVE) 01/23/18 17:58 Urine Bilirubin Negative (NEGATIVE) 01/23/18 17:58 Urine Urobilinogen 2.0 mg/dL (0.2-1.0) 01/23/18 17:58 Ur Leukocyte Esterase Neg Jackie/uL (Negative) 01/23/18 17:58 Urine WBC (Auto) 1 /hpf (0-5) 01/23/18 17:58 Urine RBC (Auto) 1 /hpf (0-3) 01/23/18 17:58 Urine Bacteria Rare (<OCC) 01/23/18 17:58 Urine Opiates Screen Negative (NEGATIVE) 01/23/18 17:58 Urine Methadone Screen Negative (NEGATIVE) 01/23/18 17:58 Ur Barbiturates Screen Negative (NEGATIVE) 01/23/18 17:58 Ur Phencyclidine Scrn Negative (NEGATIVE) 01/23/18 17:58 Ur Amphetamines Screen Negative (NEGATIVE) 01/23/18 17:58 U Benzodiazepines Scrn Negative (NEGATIVE) 01/23/18 17:58 U Oth Cocaine Metabols Negative (NEGATIVE) 01/23/18 17:58 U Cannabinoids Screen Negative (NEGATIVE) 01/23/18 17:58 - Hospital Course Hospital Course: On admission: Patient is a 62 year old male CAD (with stent placement), PVD and HTN, who presents to the ED with complaint of left-sided abdominal pain that radiates upward to this left side/chest and neck with associated symptoms of daily nausea and vomiting . Patient' symptom has been going on for 3- 4 weeks, however , he did not seek medical attention because the pain was not continuos or constant. However, over the past 1 week, his symptoms have been continuous, which he describes as an 8/10 radiating pressure. As per ED nurses, patient was sent to the ED by his PMD due to abnormal findings on a CT abdomen without contrast 2 days ago; patient does not have the results. Patient admits to chills , nausea, vomiting and headache, but denies fever, chest pain, SOB, palpitations , hematochezia, urinary symptoms and recent sick contact or travels. Course of treatment included: ACS ruled out. Patient recently stendd at [facility] [place] by [place]. Redmond 3 months ago. Troponins negative x3, patient on plavix 75mg, aspirin 81mg. Patient was recommended to follow up with his equipment validation engineer Dr. Redmond within 2 weeks of discharge PUD disease is suspected as ACS is negative, and patient's complaints are consistent with his history of PUD. Patient has an extensive history of PUD due to H. Pylori infection; the last episode being 4 months ago, refractory to antibiotic treatment. Patient was given a script for Protonix 40mg PO to take at home. It was recommended that patient follow up with GI Dr. Solomon, on an outpatient basis, per Dr. Redmond; EGD not recommended 3 months s/p stent while on anticoagulation. CAD, it was recommended that patient continue ASA 81mg, Plavix 75mg, and resume home Metoprolol 25mg BID which patient has not had filled since 10/12. Patient was provided with a script for metoprolol 25mg PO BID. Patient recommeneded to follow up with Dr. Redmond within 2 weeks of discharge Hypertension was managed with patient's home meds, amlodipine 10mg PO. Anew script was provided to patient for Metoprolol 25mg PO BID. Patient was recommended to follow up with Dr. Redmond within 2 weeks of discharge HLD, patient has been non compliant with his statin medication. Risk vs benefit was discussed with patient however patient refuses. He was recommended to discuss with Dr. Redmond within 2 weeks of discharge. Ear and throat pain can be followed up on outpatient care, patient is referred to ENT Dr. Cheema This is a brief summary of events, for a more detailed reort please refer to medical record Discharge instructions: Pt given a script for Protonix 40 PO QD Pt given a script for Metoprolol Tartrate 25 mg PO BID Pt advised to follow up with his Primary care physician Dr. Gamble within 1-2 weeks Pt advised to follow up with equipment validation engineer, Dr. Redmond within 2 weeks Pt advised to follow up with GI, Dr. Solomon with 2 weeks Pt advised to follow up with ENT, Dr. Cheema within 2 weeks Pt advised to return to ED with any return or worsening of symptoms - Date & Time of H&P Date of H&P: 01/25/18 Time of H&P: 15:28 Discharge Exam - Head Exam Head Exam: ATRAUMATIC, NORMAL INSPECTION, NORMOCEPHALIC - Eye Exam Eye Exam: EOMI Pupil Exam: NORMAL ACCOMODATION - ENT Exam ENT Exam: Mucous Membranes Moist - Respiratory Exam Respiratory Exam: Decreased Breath Sounds, NORMAL BREATHING PATTERN, UNREMARKABLE - Cardiovascular Exam Cardiovascular Exam: REGULAR RHYTHM. absent: Tachycardia - GI/Abdominal Exam GI & Abdominal Exam: Normal Bowel Sounds, Soft, Unremarkable - Extremities Exam Extremities exam: normal capillary refill, normal inspection (no edema or calf tenderness) - Skin Skin Exam: Intact, Normal Color Discharge Plan - Discharge Medications Prescriptions: Metoprolol Tartrate 25 mg PO BID #60 tablet Pantoprazole [Protonix] 40 mg PO DAILY #30 ect - Follow Up Plan Condition: FAIR Disposition: HOME/ ROUTINE Instructions: Heart Healthy Diet, Chest Pain (DC), Coronary Heart Disease (DC) , Metoprolol, Pantoprazole Additional Instructions: Patient is medically stable for discharge home. Patient to follow up with primary medical doctor within one week. If patient does not have a primary medical doctor, he should follow up in the [facility] clinic. He can call [phone] to make an appointment. Patient to follow up with Dr. Redmond within two weeks for follow up care. Patient to follow up with ENT Dr. Cheema within two weeks for follow up care. Patient to follow up with GI Dr. Solomon within two weeks for follow up care. Patient to continue home medications with the exception of thalidomide. Patient will be given a new prescription for Metoprolol medication. He is to take 25 mg by mouth twice a day. Patient will also be given a prescription for protonix to take once daily. If symptoms return, go to the emergency room. Instructions explained to patient who is aware. Referrals: Maurizio Cheema MD [Staff Provider] - Vega Solomon MD [Staff Provider] - Genaro Redmond MD [Staff Provider] -
== END 2018-01-25 15:40 | disposition home or self-care (01) ==
LOC: C.ER 15:49 → C.9E 20:04 → C.6T 21:15
PROVIDERS: ADMIT Internal Medicine; ATTEND Internal Medicine
DX: R07.89 Other chest pain (principal); E78.5 Hyperlipidemia, unspecified; F17.210 Nicotine dependence, cigarettes, uncomplicated; E87.6 Hypokalemia; I10 Essential (primary) hypertension; I25.10 Atherosclerotic heart disease of native coronary artery without angina pectoris; I73.9 Peripheral vascular disease, unspecified; Z95.5 Presence of coronary angioplasty implant and graft
CPT/HCPCS: 36415; 71045; 71250; 74176; 80053; 80061; 80324; 80345; 80346; 80349; 80353; 80358; 80361; 81001; 82948; 83036; 83690; 83735; 83880; 83992; 84100; 84439; 84443; 84484; 85025; 85610; 85730; 93005; 99285; G0378; J1650